=== PATIENT | female | born 1970 | race Asian ===

== ENCOUNTER 2025-03-08 12:38 | Outpatient (CLI) | payer OTHER, SELFPAY ==
--- NOTE | ~2025-03-08 | MM_ITS ---
EXAMINATION: MM screening olga BI w ishan HISTORY: Screening TECHNIQUE: Craniocaudal and mediolateral oblique 3-D tomosynthesis images were obtained and synthetic 2-D images were generated. CAD analysis was submitted and interpreted. COMPARISON: No prior mammogram is available for comparison at this institution. Today's examination w ill be considered a baseline study. BREAST PARENCHYMAL COMPOSITION: There are scattered areas of fibroglandular density. FINDINGS: Punctate and bulky calcifications are detected bilaterally, morphologically benign in appea adelaida. Punctate calcifications detected bilaterally, vascular in origin and benign in appearance. Unremarkable parenchymal pattern without suspicious microcalcifications, architectural distortion, di screte masses or significant asymmetry. IMPRESSION: 1. No mammographic/tomographic evidence of malignancy. 2. Recommend routine screening mammography in one year. BI-RADS Category 2: Benign finding(s). Reviewed, dictated and finalized at location A.
--- OUTSIDE RECORDS SUMMARY | 2025-03-08 14:02 | XMS_ITS | Referral Summary ---
Author Organization [facility] [address] [facility] [address] [place] [address] Care Team Providers Care Mill House Supervisor Name Role Phone Jose Tirado MD Primary Care Provider [phone] Allergies No known active allergies Medications [id number] -DPA-FISH OIL ORAL 06/08/2024 Active rosuvastatin (CRESTOR) 20 mg tabletIndicatio ns:Dyslipidemia Take 1 tablet (20 mg total) by mouth daily 90 tablet 3 09/22/2024 5 Active losartan (COZAAR) 50 mg tabletIndicatio ns:Hypertension , essential Take 1 tablet (50 mg total) by mouth daily 90 tablet 3 09/22/2024 5 Active amLODIPine (NORVASC) 5 mg tabletIndicatio ns:Hypertension , essential Take 1 tablet (5 mg total) by mouth daily 90 tablet 3 09/22/2024 5 Active febuxostat (ULORIC) 40 mg tablet Take 0.5 tablets (20 mg total) by mouth daily 45 tablet 3 09/22/2024 5 Active Active Problems No known active problems Immunizations Immunization Administration Dates Next Due Influenza, Trivalent, Preser vative Free, Intramuscular 09/22/2024 Influenza, Unspecified 07/25/2023(Deferred: Yumiko ent decision) Social History Tobacco Use Types Packs/Day Years Used Date Smoking Tobacco: Never Smokeless Tobacco: Never Tobacco Cessation:Counseling Given: Not Answered AUDIT-C Answer Date Recorded Q1: How often do you have a drink containing alcohol? Never 09/22/2024 Q2: How many drinks containi ng alcohol do you have on a typical day when you are drinking? Patient does not drink Q3: How often do you have si x or more drinks on one occasion? Never 09/22/2024 PHQ-2 Answer Date Recorded PHQ-2 Total Score (If total score is 3 or more points, staff should administer the PHQ-9) 0 09/22/2024 Comments Unknown Sex and Gender Information Value Date Recorded Sex Assigned at Not on file Legal Sex Female 12:47 PM CDT Gender Identity Not on file Sexual Orientation Not on file Last Filed Vital Signs Vital Sign Reading Time Taken Comments Blood Pressure 112/70 09/22/2024 9:10 AM STONECUTTER HAND Pulse 60 09/22/2024 9:10 AM STONECUTTER HAND Temperature 36.7 C (98 F) 09/22/2024 9:10 AM STONECUTTER HAND Respiratory Rate 18 09/22/2024 9:10 AM STONECUTTER HAND Oxygen Saturation 98% 09/22/2024 9:10 AM STONECUTTER HAND Inhaled Oxygen Concentration - - Weight 55.1 kg (121 lb 6.4 oz) 09/22/2024 9:10 A M STONECUTTER HAND Height 149.9 cm (4' 11 ) 09/22/2024 9:10 AM STONECUTTER HAND Body Mass Index 24.52 09/22/2024 9:10 AM STONECUTTER HAND Plan of Treatment Not on file Procedures Procedure Name Priority Date/Time Associated Diagnosis Comments STOOL DNA COLOGUARD Routine 10/06/2024 9:30 AM STONECUTTER HAND Colon cancer screening from Last 3 Months or Most Recently Relevant to Health Maintenance Results * Stool DNA - Cologuard (10/06/2024 9:30 AM STONECUTTER HAND) Stool DNA - Cologuard Negative Negative rumr (CLIA #:[id number]) Comment: NEGATIVE TEST RESULT. A negative Cologuard result indicates a low likelihood that a colorectal cancer (CRC) or advanced adenoma (adenomatous polyps with more advanced pre-malignant features) is present. The chance that a person with a negative Cologuard test has a colorectal cancer is less than 1 in 1500 (negative predictive value >99.9%) or has an advanced adenoma is less than 5.3% (negative predictive value 94.7%). These data are based on a prospective cross-sectional study of 10,000 individuals at average risk for colorectal cancer who were screened with both Cologuard and colonoscopy. (Cass Garcia, N Engl J Med 2014;370(14):3668-6439) The normal value (reference range) for this assay is negative. COLOGUARD RE-SCREENING RECOMMENDATION: Periodic colorectal cancer screening is an important part of preventive healthcare for asymptomatic individuals at average risk for colorectal cancer. Following a negative Cologuard result, the [employer] Society and U.S. Multi-Society Task Force screening guidelines recommend a Cologuard re-screening interval of 3 years. References: [employer] Guideline for Colorectal Cancer Screening: https://www.cancer.org/cancer/xqblg-hxlljk-wmcwic/eqszzwepn-gfpcihyqs-qdgwivm/ac s-rec ommendations.html.; Noah DK, Kwame KELLEY, Jaelyn EdgeK, Colorectal Cancer Screening: Recommendations for Physicians and Patients from the U.S. Multi-Society Task Force on Colorectal Cancer Screening , Am J Gastroenterology 2017; 112:0264-4003. TEST DESCRIPTION: Composite algorithmic analysis of stool DNA-biomarkers with hemoglobin immunoassay. Quantitative values of individual biomarkers are not reportable and are not associated with individual biomarker result reference ranges. Cologuard is intended for colorectal cancer screening of adults of either sex, 45 years or older, who are at average-risk for colorectal cancer (CRC). Cologuard has been approved for use by the U.S. FDA. The performance of Cologuard was established in a cross sectional study of average-risk adults aged 50-84. Cologuard performance in patients ages 45 to 49 years was estimated by sub-group analysis of near-age groups. Colonoscopies performed for a positive result may find as the most clinically significant lesion: colorectal cancer [4.0%], advanced adenoma (including sessile serrated polyps greater than or equal to 1cm diameter) [20%] or non- advanced adenoma [31%]; or no colorectal neoplasia [45%]. These estimates are derived from a prospective cross-sectional screening study of 10,000 individuals at average risk for colorectal cancer who were screened with both Cologuard and colonoscopy. (Imperiale T. et al, N Engl J Med 2014;370(14):2097-3576.) Cologuard may produce a false negative or false positive result (no colorectal cancer or precancerous polyp present at colonoscopy follow up). A negative Cologuard test result does not guarantee the absence of CRC or advanced adenoma (pre-cancer). The current Cologuard screening interval is every 3 years. ([employer] Cancer Society and U.S. Multi-Society Task Force). Cologuard performance data in a 10,000 patient pivotal study using colonoscopy as the reference method can be accessed at the following location: www.nooked.com/results. Additional description of the Cologuard test process, warnings and precautions can be found at www.cologuard.com. Stool 10/06/2024 9:30 AM STONECUTTER HAND 10/07/2024 10:32 AM STONECUTTER HAND Jose Tirado MD LAB BODY FLUIDS AND STOOLS ORDER GERRI Final Result Performing Organization Address City/State/[facility] Co de Phone Number [facility] (CLIA #:[id number]) [address] [place] [address] from Last 3 Months or Most Recently Relevant to Health Maintenance Insurance [facility] CHOICE PLUS Care Teams Mill House Supervisor Relationship Specialty Start Date End Date Jose Tirado MD [address] [place] [address] [place] [id number] PCP - General Family Medicine 09/22/24
--- OUTSIDE RECORDS SUMMARY | 2025-03-08 14:02 | XMS_ITS | Clinical Summary ---
Author Organization [facility] [address] Address [address] [facility] [address] [place] [address] Care Team Providers Care Drafter Cartographic Name Role Phone Jose Tirado MD Primary Care Provider [phone] Allergies No known active allergies Medications [id number] -DPA-FISH OIL ORAL 06/08/2024 Active rosuvastatin (CRESTOR) [...] 09/22/2024 Influenza, Unspecified 07/25/2023(Deferred: Yumiko ent decision) Medical History Medical History Date Comments Hypertension Family History Medical History Relation Name Comments No Known Problems Father No Known Problems Mother Relation Name Status Comments Father Mother Social History Tobacco Use Types Packs/Day Years [...] on file Sexual Orientation Not on file Obstetrics History Last Filed Vital Signs Vital Sign Reading Time Taken Comments Blood Pressure 112/70 09/22/2024 9:10 AM STAFFING BRANCH MANAGER Pulse 60 09/22/2024 9:10 AM STAFFING BRANCH MANAGER Temperature 36.7 C (98 F) 09/22/2024 9:10 AM STAFFING BRANCH MANAGER Respiratory Rate 18 09/22/2024 9:10 AM STAFFING BRANCH MANAGER Oxygen Saturation 98% 09/22/2024 9:10 AM STAFFING BRANCH MANAGER Inhaled Oxygen Concentration - - Weight 55.1 kg (121 lb 6.4 oz) 09/22/2024 9:10 A M STAFFING BRANCH MANAGER Height 149.9 cm (4' 11 ) 09/22/2024 9:10 AM STAFFING BRANCH MANAGER Body Mass Index 24.52 09/22/2024 9:10 AM STAFFING BRANCH MANAGER Plan of Treatment Health Maintenance Due Date Last Done Comments Breast Cancer Screening-Mammogram 1970 Cervical Cancer Screening 1970 Hepatitis C Screening 1970 DTaP/Tdap/Td Vaccine (1 - Tdap) 1981 Hepatitis B Screening 1988 Zoster Vaccine (1 of 2) 2020 Depression Screening 09/22/2025 09/22/2024, 09/22/2024 Regular Well Visit/Exam 18-64 09/22/2025 09/22/2024 Colon Cancer Screening-DNA Stool 10/06/2027 10/06/2024 Influenza Vaccine Completed 09/22/2024 Pneumococcal vaccine <65 Aged Out No longer eligible based on patient's age to complete this topic Procedures Procedure Name Priority Date/Time Associated Diagnosis Comments STOOL DNA COLOGUARD Routine 10/06/2024 9:30 AM STAFFING BRANCH MANAGER Colon cancer screening from Last 3 Months or Most Recently Relevant to Health Maintenance Results * Stool DNA - Cologuard (10/06/2024 9:30 AM STAFFING BRANCH MANAGER) Stool DNA - Cologuard Negative Negative [employer] (CLIA #:[id number]) Comment: NEGATIVE TEST RESULT. A negative Cologuard [...] screened with both Cologuard and colonoscopy. (Cass Lira al, N Engl J Med 2014;370(14):6512-0034) The normal value (reference range) for this assay is negative. COLOGUARD RE-SCREENING RECOMMENDATION: Periodic colorectal cancer screening is an important part of preventive healthcare for asymptomatic individuals at average risk for colorectal cancer. Following a negative Cologuard result, the [place] [employer] Society and U.S. Multi-Society Task Force screening guidelines recommend a Cologuard re-screening interval of 3 years. References: [place] Guideline for Colorectal Cancer Screening: https://www.cancer.org/cancer/hbejo-ipfexl-kwbqge/natmuzbni-ecvxhyhjl-kblzohx/ac s-rec ommendations.html.; Noah DK, Kwame CR, Jaelyn EdgeK, Colorectal Cancer Screening: Recommendations for Physicians and Patients from the U.S. Multi-Society Task Force on Colorectal Cancer Screening , Am J Gastroenterology 2017; 112:0037-1497. TEST DESCRIPTION: Composite algorithmic analysis of stool [...] screened with both Cologuard and colonoscopy. (Cass Lira al, N Engl J Med 2014;370(14):5501-0888.) Cologuard may produce a false negative or false positive result (no colorectal cancer or precancerous polyp present at colonoscopy follow up). A negative Cologuard test result does not guarantee the absence of CRC or advanced adenoma (pre-cancer). The current Cologuard screening interval is every 3 years. ([place] Cancer Society and U.S. Multi-Society Task Force). Cologuard performance data in a 10,000 patient pivotal study using colonoscopy as the reference method can be accessed at the following location: www.Flybits[employer]/results. Additional description of the Cologuard test process, warnings and precautions can be found at www.[employer].com. Stool 10/06/2024 9:30 AM STAFFING BRANCH MANAGER 10/07/2024 10:32 AM STAFFING BRANCH MANAGER us Jose Tirado MD LAB BODY FLUIDS AND STOOLS ORDER GERRI Final Result [employer] (CLIA #:[id number]) [address] [place] [address] from Last 3 Months or Most Recently Relevant to Health Maintenance Insurance [facility] CHOICE PLUS [facility]/PPO Address: [facility] [address] [place] [address] Care Teams Drafter Cartographic Relationship Specialty Start Date End Date Jose Tirado MD [address] [place] [address] PCP - General Family Medicine 09/22/24
== END 2025-03-08 12:39 | disposition home or self-care (01) ==
LOC: CHSIMG 12:42
PROVIDERS: PCP Family Medicine; Visit Provider Family Medicine
DX: Z12.31 Encounter for screening mammogram for malignant neoplasm of breast (principal)
CPT/HCPCS: 77063; 77067